=== PATIENT | female | born 1965 | race African-American/Black ===

== ENCOUNTER 2016-12-16 21:39 | Emergency (ER) | payer OTHER ==
[~2016-12-16] VITALS: Ht 162.6 cm; Wt 108.4 kg
--- NOTE | ~2016-12-16 | EKG ---
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
[~2016-12-16 21:39] MED LIST: CELEBREX 200 M200 M1 PO; COLACE100 MG PO; DENIES; DULOXETINE HCL30 MG PO; FLEXERIL PO; HYDROCODONE-AP1 EAC6 PO; NEURONTIN 300300 M1 PO; NOHOMEMEDICATIONS; NORCO 5-325 TA1 EACH PO; SOMA250 MG PO; ULTRAM 50MG TAB50 MG PO
[2016-12-16 22:34] LABS: ABSOLUTE NEUTROPHILS 4.3 thou/uL (1.4-8.2); BASOPHILS 0.6 % (0.0-2.0); EOSINOPHILS 2.2 % (0.0-3.0); HEMATOCRIT 35.8 % (37.0-47.0); LYMPHOCYTES 41.3 % (24.0-44.0); MCH 27.2 pg (26.0-34.0); MCHC 33.5 g/dL (28.0-37.0); MCV 81.3 fL (80.0-100.0); PLATELET COUNT 298 thou/uL (150-400); POLYS 49.9 % (36.0-66.0); RBC 4.41 mil/uL (4.20-5.00); RDW 14.2 % (10.5-14.5); WBC 8.7 thou/uL (4.0-11.0)
[2016-12-16 22:39] LABS: MANUAL DIFF NO
[2016-12-16 22:50] LABS: ANION GAP 6 mmol/L (7-16); BUN 12 mg/dL (7-18); CALCIUM 9.5 mg/dL (8.5-10.1); CHLORIDE 107 mmol/L (98-107); CO2 28 mmol/L (21-32); GLUCOSE 121 mg/dL (70-99); POTASSIUM 3.9 mmol/L (3.5-5.1); SODIUM 141 mmol/L (136-145)
[2016-12-16 23:02] LABS: NT-PRO BRAIN NAT PEPTIDE 7 pg/mL (<300); TROPONIN-I < 0.04 ng/mL (<0.04-0.07)
[2016-12-17] MEDS ORDERED: APAP W/CODEINE1 TA2 PO (00:37)
[2016-12-17] MEDS ORDERED: TESSALON PERLE100 MG PO (00:37)
== END 2016-12-17 00:53 | disposition home or self-care (01) ==
LOC: ER 21:39
PROVIDERS: Emergency Medicine
DX: J20.8 Acute bronchitis due to other specified organisms (principal); R07.89 Other chest pain; Z88.0 Allergy status to penicillin; Z88.8 Allergy status to other drugs, medicaments and biological substances; Z91.040 Latex allergy status

== ENCOUNTER 2018-10-20 09:14 | Emergency (ER) | payer OTHER ==
[~2018-10-20] VITALS: Ht 162.6 cm; Wt 112.5 kg
[~2018-10-20 09:14] MED LIST changes: +APAP W/CODEINE1 TA2 PO; +CYMBALTA60 MG PO; +NEURONTIN600 MG PO; +OMEPRAZOLE40 MG PO; +TESSALON PERLE100 MG PO; +ZANAFLEX4 MG PO
[2018-10-20 11:46] LABS: HEMATOCRIT 38.5 % (37.0-47.0); HEMOGLOBIN 12.6 gm/dL (12.0-15.0); MCH 27.3 pg (26.0-34.0); MCHC 32.6 g/dL (28.0-37.0); MCV 83.8 fL (80.0-100.0); RBC 4.6 mil/uL (4.20-5.00); WBC 9.5 thou/uL (4.0-11.0)
[2018-10-20 12:18] LABS: CALCIUM 9.5 mg/dL (8.5-10.1); CREATININE 0.9 mg/dL (0.6-1.0); POTASSIUM 4.1 mmol/L (3.5-5.1)
[2018-10-20] MEDS ORDERED: NORCO 10-325 T1 EACH PO (13:55)
[2018-10-20] MEDS ORDERED: MEDROLDOSEPACK PO (13:55)
[2018-10-20 14:10] VITALS: BP 145/83
== END 2018-10-20 14:12 | disposition home or self-care (01) ==
LOC: ER 09:14
PROVIDERS: Physician Assistant
DX: M51.26 Other intervertebral disc displacement, lumbar region (principal); Z91.040 Latex allergy status; Z88.0 Allergy status to penicillin; Z88.8 Allergy status to other drugs, medicaments and biological substances

== ENCOUNTER 2018-10-25 20:58 | Emergency (ER) | payer OTHER ==
[~2018-10-25] VITALS: Ht 162.6 cm; Wt 113.4 kg
[~2018-10-25 20:58] MED LIST changes: +MEDROLDOSEPACK PO; +NORCO 10-325 T1 EACH PO
[2018-10-25] MEDS ORDERED: CELEBREX 200 M200 M1 PO (21:17)
[2018-10-25] MEDS ORDERED: FLEXERIL PO (21:18)
[2018-10-25] MEDS ORDERED: NORCO 5-325 TA1 EACH PO (22:08)
[2018-10-25 22:49] VITALS: BP 136/90
== END 2018-10-25 22:50 | disposition home or self-care (01) ==
LOC: ER 20:58
DX: M54.41 Lumbago with sciatica, right side (principal); G89.29 Other chronic pain; Z88.0 Allergy status to penicillin; Z91.040 Latex allergy status; Z88.8 Allergy status to other drugs, medicaments and biological substances; V89.0XXA Person injured in unspecified motor-vehicle accident, nontraffic, initial encounter; Y93.89 Activity, other specified; Y92.89 Other specified places as the place of occurrence of the external cause; Y99.8 Other external cause status

== ENCOUNTER 2018-11-15 14:52 | Emergency (ER) | payer OTHER ==
[~2018-11-15] VITALS: Ht 162.6 cm; Wt 107.5 kg
[2018-11-15 16:27] VITALS: BP 122/68
== END 2018-11-15 16:27 | disposition home or self-care (01) ==
LOC: ER 14:52
DX: M20.011 Mallet finger of right finger(s) (principal); M54.9 Dorsalgia, unspecified; G89.29 Other chronic pain; Z88.0 Allergy status to penicillin; Z91.040 Latex allergy status; Z88.8 Allergy status to other drugs, medicaments and biological substances

== ENCOUNTER 2020-03-31 05:00 | Emergency (ER) | payer OTHER ==
[~2020-03-31] VITALS: Ht 162.6 cm; Wt 105.2 kg
[2020-03-31 06:28] LABS: HEMATOCRIT 36.6 % (37.0-47.0); HEMOGLOBIN 12.2 gm/dL (12.0-15.0); MCHC 33.3 g/dL (28.0-37.0); MCV 84.1 fL (80.0-100.0); PLATELET COUNT 254 thou/uL (150-400); RBC 4.35 mil/uL (4.20-5.00); WBC 4.8 thou/uL (4.0-11.0)
[2020-03-31 06:38] LABS: ANION GAP 6 mmol/L (7-16); BUN 10 mg/dL (7-18); CALCIUM 8.8 mg/dL (8.5-10.1); CHLORIDE 103 mmol/L (98-107); CO2 28 mmol/L (21-32); GLUCOSE 115 mg/dL (74-106); POTASSIUM 4.1 mmol/L (3.5-5.1); SODIUM 137 mmol/L (136-145)
[2020-03-31 06:47] LABS: ALBUMIN 3.3 g/dL (3.4-5.0); DIRECT BILIRUBIN < 0.1 mg/dL (<0.1-0.2); SGOT 18 U/L (15-37); SGPT 23 U/L (30-65); TOTAL BILIRUBIN 0.2 mg/dL (0.2-1.0); TOTAL PROTEIN 7.2 g/dL (6.4-8.2); TROPONIN-I <0.06 ng/mL (<0.06)
[2020-03-31 07:34] LABS: ABSOLUTE NEUTROPHILS 2.7 thou/uL (1.4-8.2); PLATELET ESTIMATE NORMAL
[2020-03-31 08:21] LABS: URINE BILIRUBIN NEGATIVE (Negative); URINE BLOOD NEGATIVE (Negative); URINE CLARITY CLEAR; URINE COLOR YELLOW; URINE GLUCOSE-RANDOM* NEGATIVE (Negative); URINE KETONES NEGATIVE (Negative); URINE LEUKOCYTES-REFLEX NEGATIVE (Negative); URINE NITRITE-REFLEX NEGATIVE (Negative); URINE PROTEIN (DIPSTICK) NEGATIVE (Negative)
[2020-03-31] MEDS ORDERED: ZOFRAN ODT4 MG PO (08:37)
[2020-03-31] MEDS ORDERED: GUAIFEN-CODEINE10 ML PO (08:37)
[2020-03-31] MEDS ORDERED: ZPAK PO (08:41)
[2020-03-31 09:07] VITALS: BP 133/76
--- NOTE | 2020-04-01 08:05 | EKG ---
[facility] [place] [address] ELECTROCARDIOGRAM REPORT Name: EDWIN LARSEN Room #: DEP [facility]#: [id number] Admission: 03/31/20 Attend Phys: Discharge: 03/31/20 Date of : 61 Report #: [id number] THIS REPORT FOR: cc: CAIO Scott family physician/PCP CAIO Scott family physician/PCP Carlos Latham MD [facility] THIS REPORT FOR: //name// 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: [place] [id number] : 1965 Requested By: Lisbeth Conrad Order Number: [id number] MD: Carlos Latham Measurements Intervals [place] Rate: 85 P: 46 NM: 169 QRS: 15 QRSD: 88 T: 17 QT: 355 QTc: 422 Interpretive Statements Sinus rhythm Baseline wander in lead(s) V6 Compared to ECG 12/16/2016 21:45:22 No significant changes Electronically Signed On 04-01-2020 8:05:20 CDT by Carlos Latham [email or web address] <ELECTRONICALLY SIGNED> By: Carlos Latham MD, [facility] 04/01/20 0805 Carlos Latham MD, [facility] /EPI
== END 2020-03-31 09:08 | disposition home or self-care (01) ==
LOC: ER 05:00
PROVIDERS: Emergency Medicine
DX: J06.9 Acute upper respiratory infection, unspecified (principal); R50.9 Fever, unspecified; Z20.828 Contact with and (suspected) exposure to other viral communicable diseases; Z79.899 Other long term (current) drug therapy; Z88.0 Allergy status to penicillin; Z88.8 Allergy status to other drugs, medicaments and biological substances; Z91.040 Latex allergy status